=== PATIENT | female | born 1985 | race Caucasian/White ===

== ENCOUNTER 2018-03-02 17:07 | Emergency (ER) | payer SELFPAY ==
[2018-03-02 17:11] VITALS: BP 110/69; BMI 22.4
[2018-03-02] MEDS ORDERED: TORADOL 60 MG VIAL IM ONE (18:00)
--- NOTE | 2018-03-02 18:03 | DR.GENAD ---
HPI - PCP Primary Care Physician: ARDEN - Complaint/Symptoms Chief Complaint:: LEFT ARM HAS BEEN HURTING FOR A COUPLE OF WEEKS AND NOW IT IS GETTING WORSE AND MOVING INTO THE LOWER ARM. SHE STATED THAT JUST PICKING UP TOLIET PAPER IS VERY PAINFUL. - Nurses notes reviewed Nurses Notes Review: Yes - Source History Provided: Patient - Mode of Arrival Mode of Arrival: Ambulatory - Timing Onset of Chief Complaint: 02/16/18 PMH - PMH Past Medical History: No Past Surgical History: Yes Surgical History: PATIENT ACCOUNTS SPECIALIST Surgery - Family History History of Family Medical Conditions: Yes Family Medical History: Cancer - Social History Does patient currently use any type of tobacco product: Yes Have you used tobacco products in the last 12 months: Yes Type of Tobacco Use: Cigarettes Does any household member use tobacco: No Alcohol Use: None Do you use any recreational Drugs:: No Lives With: Family Lives Where: Home - infectious screening In the last 2 months have you had wt loss of >10#?: NO Have you had fever, night sweats or hemotysis?: No Have you traveled outside the country in the last 6 months?: No Isolation: Standard PE - Vital Signs Vitals: Temperature 98.3 F Pulse Rate 75 Respiratory Rate 20 Blood Pressure 110/69 O2 Sat by Pulse Oximetry 98 - Diagnosis Discharge Problem: Left elbow contusion Qualifiers: Encounter type: initial encounter Qualified Code(s): S50.02XA - Contusion of left elbow, initial encounter Shoulder sprain Qualifiers: Encounter type: initial encounter Shoulder sprain type: unspecified sprain Laterality: left Qualified Code(s): S43.402A - Unspecified sprain of left shoulder joint, initial encounter Sprain of elbow, left Qualifiers: Encounter type: initial encounter Qualified Code(s): S53.402A - Unspecified sprain of left elbow, initial encounter - Discharge Plan Condition: Stable - Follow ups/Referrals Follow ups/Referrals: JOSEFINA HER [Primary Care Provider] - 3 days - Instructions Instructions: Shoulder Sprain, Elbow Contusion, [id number] Additional Instructions: RETURN TO ED IF WORSE. PATIENT WILL CONTINUE MOTRIN AT HOME.
[2018-03-02] MEDS ORDERED: TORADOL 60 MG VIAL ONE (18:04)
--- NOTE | 2018-03-02 19:10 | RAD ---
Examination: Left shoulder, three views History: Pain for several weeks Findings: There is no evidence for fracture, displacement, bone destruction or significant arthritis. The humeral head is in normal position. No bone destruction or abnormal calcification is seen. Impression: No acute or significant findings. Reported By:
--- NOTE | 2018-03-02 19:13 | RAD ---
Examination: Left elbow, three views History: Pain several weeks Findings: No definite fracture, dislocation or evidence for synovial distension. Impression: Within normal limits. Reported By:
== END 2018-03-02 19:23 | disposition home or self-care (01) ==
LOC: ER 17:16
DX: S50.02XA Contusion of left elbow, initial encounter (principal); S43.402A Unspecified sprain of left shoulder joint, initial encounter; S53.402A Unspecified sprain of left elbow, initial encounter; Y33.XXXA Other specified events, undetermined intent, initial encounter; Y92.9 Unspecified place or not applicable
CPT/HCPCS: 73030; 73070; 96372; 99282; J1885